=== PATIENT | female | born 1990 | race Caucasian/White ===

== ENCOUNTER 2016-08-20 14:05 | Emergency (ER) | payer BC ==
[~2016-08-20] VITALS: Ht 180.3 cm; Wt 90.7 kg
== END 2016-08-20 18:15 | disposition short-term general hospital (02) ==
LOC: LAB 14:05 → ER 14:05
DX: K37 Unspecified appendicitis (principal)
CPT/HCPCS: J1885; J2270; J2405; Q9963; Q9967